=== PATIENT | female | born 1950 | race Caucasian/White ===

== ENCOUNTER → 2022-07-12 11:26 | Outpatient (CLI) | payer MEDICARE, OTHER, SELFPAY ==
--- NOTE | 2022-07-12 11:27 | DI.RAD.S_ITS ---
PROCEDURE: XR CHEST 2V INDICATIONS: Cough TECHNIQUE: 2 views of the chest were acquired. COMPARISON: None. FINDINGS: Surgical changes and devices: None. Lungs and pleura: Lungs are clear. No pleural effusions or pneumothorax. Mediastinum: Mediastinal contours are normal. Heart size is normal. Bones and chest wall: No suspicious bony abnormalities. Soft tissues appear unremarkable. IMPRESSION: Normal two view chest x-ray Approved by: Logan Sanders M.D. on 07/12/2022 at 11:41
== END ==
PROVIDERS: PCP Nurse Practitioner; Referring Provider Registered Nurse; Visit Provider Registered Nurse
DX: R05.9 Cough, unspecified (principal)
CPT/HCPCS: 71046

== ENCOUNTER 2023-06-09 10:35 | Emergency (ER) | payer MEDICARE, OTHER, SELFPAY ==
[2023-06-09 10:52] VITALS: BP 146/76; PULSE 71; RESP 16; TEMP 36.5; O2SAT 100; BMI 27.4
--- NOTE | 2023-06-09 13:19 | ED_ITS ---
HPI - Back Pain/Injury <Kimberly Daniels PA-C - Last Filed: 06/09/23 19:23> General Chief Complaint: Back Pain/Injury Stated Complaint: Middle back pain Time Seen by Provider: 06/09/23 12:10 Source: patient History of Present Illness HPI Narrative: This is a 73-year-old female with history of previous back pain low back problems, and left hip replacement who presents today with concern for right- sided low back pain that has been severe since last night. Patient states it has been 3 or 4 days she noticed a little bit of discomfort in her right back and initially thought nothing of it, she was standing at the kitchen doing some work preparing food yesterday evening and she realized her back pain was worsening and felt things tightening up and had to sit down. All night she has had pretty significant discomfort which she describes as a burning sensation to the right of her spine in her low back and also radiating out to her ribs a little. She does state that sometimes when she moves in certain ways it causes a sharp feeling pain and she also has some pain above her right buttock and into her right buttock. She denies numbness or tingling of extremities or extremity weakness but does state that walking and putting weight on her right leg makes her back hurt more. She denies any fevers, chills, vomiting, diarrhea, abdominal pain chest pain or any other symptoms. She is a former smoker but has been quit for 24 years. Related Data Home Medications Medication Instructions Recorded Confirmed atorvastatin 20 mg tablet (Lipitor) 20 mg PO HS ##0 02/13/16 07/12/22 timolol maleate 0.5 % eye drops 1 drp OPHTH ##0 02/13/16 07/12/22 tamoxifen 10 mg tablet 5 mg PO DAILY 12/06/18 07/12/22 Previous Rx's Medication Instructions Recorded celecoxib 200 mg capsule (Celebrex) 200 mg PO DAILY axial neck pain 12/06/18 #30 caps diclofenac sodium 1 % topical gel 2 g topical QID arthritis pain 12/06/18 #100 grams lidocaine 5 % topical patch 1 patch topical DAILY low back 12/06/18 pain #30 ea albuterol sulfate 90 mcg/actuation 2 puff inhalation Q4-6H PRN 07/12/22 aerosol inhaler shortness of breath or wheezing #6.7 grams benzonatate 200 mg capsule 200 mg PO TID PRN cough #30 caps 07/12/22 baclofen 10 mg tablet 10 mg PO TID 10 days #30 tabs 06/09/23 prednisone 20 mg tablet 40 mg (2 x 20 mg) PO DAILY 5 days 06/09/23 #10 tabs Allergies Allergy/AdvReac Type Severity Reaction Status Date / Time No Known Drug Allergies Allergy Verified 06/09/23 10:52 Review of Systems <Kimberly Daniels PA-C - Last Filed: 06/09/23 19:23> Review of Systems Narrative: See HPI Patient History <Kimberly Daniels PA-C - Last Filed: 06/09/23 19:23> Social History Smoking Status: Unknown if ever smoked Smoking Status: Unknown if ever smoked alcohol intake frequency: holidays/special occasions only Substance Use Type: does not use Exam <Kimberly Daniels PA-C - Last Filed: 06/09/23 19:23> Narrative Exam Narrative: GENERAL: 73 year old patient appears stated age. Well-developed patient, in mild distress. HEAD: Atraumatic. Normocephalic. EYES: Pupils equal round and reactive. Extraocular motions intact. No scleral icterus. No injection or drainage. ENT: Nose without bleeding, purulent drainage. Airway patent. NECK: Trachea midline. Non tender CARDIOVASCULAR: Regular rate and rhythm without murmurs, gallops, or rubs. RESPIRATORY: Clear to auscultation. Breath sounds equal bilaterally. No wheezes, rales, or rhonchi. GASTROINTESTINAL: Abdomen soft, non-tender, nondistended. EXTREMITIES: No edema or joint tenderness. BACK: There is no midline spinous process tenderness, there is significant tenderness with palpation over the lumbar paraspinal muscles with exquisite pain induced with palpation with some muscle spasming present. There is also pain with palpation over the intercostal muscles of ribs 8 through 12 posteriorly. Patient also has tenderness at the SI joint on the right and the sciatic nerve exit in the buttock.. Otherwise Nontender without deformity or crepitance. There is increased back pain with flexion and extension at the hip active. No CVA tenderness. NEURO: AOx3. SKIN: No rash or erythema of visible areas Initial Vital Signs Initial Vital Signs: Vital Signs Temperature 97.7 F 06/09/23 10:52 Pulse Rate 71 06/09/23 10:52 Respiratory Rate 16 06/09/23 10:52 Blood Pressure 146/76 H 06/09/23 10:52 Pulse Oximetry 100 06/09/23 10:52 Oxygen Delivery Method Room Air 06/09/23 10:52 <Yousif Ko MD - Last Filed: 06/12/23 19:25> Initial Vital Signs Initial Vital Signs: Vital Signs Temperature 97.7 F 06/09/23 10:52 Pulse Rate 71 06/09/23 10:52 Respiratory Rate 16 06/09/23 10:52 Blood Pressure 146/76 H 06/09/23 10:52 Pulse Oximetry 100 06/09/23 10:52 Oxygen Delivery Method Room Air 06/09/23 10:52 Course <Kimberly Daniels PA-C - Last Filed: 06/09/23 19:23> Orders Ordered: Discontinued Medications Baclofen (Baclofen 10 Mg Tablet) 10 mg PO NOW ONE Stop: 06/09/23 13:52 Last Admin: 06/09/23 14:02 Dose: 10 mg Documented By: DOM Ketorolac Tromethamine (Ketorolac 30 Mg/Ml Vial) 15 mg IM NOW ONE Stop: 06/09/23 13:52 Last Admin: 06/09/23 14:00 Dose: 15 mg Documented By: DOM Reevaluation(s) Reevaluation #1: Re-evaluated the patient and she has had improvement in her pain she states she is now able to walk a few steps without it increasing her pain in her back. 1500 Vital Signs Vital signs: Vital Signs - 8 hr 06/09/23 13:42 06/09/23 15:35 Temperature 97.3 F L Pulse Rate 70 61 Respiratory Rate 18 18 Blood Pressure 145/72 H 130/66 Pulse Oximetry 99 98 Oxygen Delivery Method Room Air Room Air <Yousif Ko MD - Last Filed: 06/12/23 19:25> Orders Ordered: Discontinued Medications Baclofen (Baclofen 10 Mg Tablet) 10 mg PO NOW ONE Stop: 06/09/23 13:52 Last Admin: 06/09/23 14:02 Dose: 10 mg Documented By: DOM Ketorolac Tromethamine (Ketorolac 30 Mg/Ml Vial) 15 mg IM NOW ONE Stop: 06/09/23 13:52 Last Admin: 06/09/23 14:00 Dose: 15 mg Documented By: DOM Vital Signs Vital signs: Vital Signs - 8 hr 06/09/23 13:42 06/09/23 15:35 Temperature 97.3 F L Pulse Rate 70 61 Respiratory Rate 18 18 Blood Pressure 145/72 H 130/66 Pulse Oximetry 99 98 Oxygen Delivery Method Room Air Room Air MDM - Back Pain/Injury <Kimberly Daniels PA-C - Last Filed: 06/09/23 19:23> Differential Diagnosis Differential diagnosis: Likely lumbar radiculopathy, sciatica and strain of lumbar region Lab Data Attestation: I reviewed the patient's lab results. Labs: Urine Dip Bedside Urine Glucose Negative Bedside Urine Bilirubin - Negative Bedside Urine Ketone - Negative Urine Specific [place] 1.015 Bedside Urine Occult Blood - Negative Bedside Urine pH 6.0 Bedside Urine Protein - Negative Bedside Urine Urobilinogen - Negative Bedside Urine Nitrite - Negative Bedside Urine Leukocytes - Negative Esterase Imaging Data lumbar spine xr: My Impression: Agree with Radiology interpretation Radiologist's Impression: [address] [address] XRay Report Signed Patient: Mary Beth Kirby MR#: [id number] : 1950 Acct:[id number] Age/Sex: 73 / F Date of Service: 06/09/23 Loc: ED Accession Number: [id number] Procedure: XR lumbar spine 2-3V Ordering Provider: Kimberly Daniels P.A-C PROCEDURE: XR LUMBAR SPINE 2-3V INDICATIONS: Right back pain no injury w/muscle spasms hx sciatica TECHNIQUE: 3 views of the lumbar spine were acquired. COMPARISON: None. FINDINGS: Bones: 5 [id number] vertebrae are present. There is normal bony alignment. No vertebral body compression fractures. No suspicious bony lesions. Spine degenerative disc disease and facet arthropathy. Partially visualized left hip arthroplasty. Soft tissues: Overlying bowel gas pattern is normal. No suspicious soft tissue calcifications. IMPRESSION: Multilevel degenerative disc disease. Multilevel facet arthropathy. No acute osseous lesion. If symptoms and/or clinical suspicion for pathology persists, evaluation with MRI should be considered for further assessment. Dictated by: Shiloh Leahy MD, PhD on 06/09/2023 at 15:10 Approved by: Shiloh Leahy MD, PhD on 06/09/2023 at 15:10 Treatment and disposition Shared decision making:: Shared decision-making was used to determine the patient's plan for evaluation today and plan for outpatient follow-up MDM Narrative Medical decision making narrative: This is a 73-year-old woman with history of previous low back problems who pr esents today with concern for right-sided low back pain present for 4 days and worsening as of last night. No specific known injury. Exam findings are very consistent with musculoskeletal injury, lumbar x-ray is obtained which does show moderate/mild disc degeneration. Patient is given Toradol and baclofen today in the ER and does have moderate improvement of symptoms. Urine is unremarkable, a dditional labs were not obtained as exam is very consistent with musculoskeletal injury. Prescription today for baclofen and prednisone, patient is advised to follow up closely with her PCP, return if new or worsening symptoms and consider seeing ortho spine for further evaluation ongoing care if needed if her symptoms are not improving soon. Return precautions provided, all questions answered. <Yousif Ko MD - Last Filed: 06/12/23 19:25> Lab Data Labs: Urine Dip Bedside Urine Glucose Negative Bedside Urine Bilirubin - Negative Bedside Urine Ketone - Negative Urine Specific [place] 1.015 Bedside Urine Occult Blood - Negative Bedside Urine pH 6.0 Bedside Urine Protein - Negative Bedside Urine Urobilinogen - Negative Bedside Urine Nitrite - Negative Bedside Urine Leukocytes - Negative Esterase Discharge Plan Departure Patient Disposition: Home Clinical Impression: Degenerative disc disease Qualifiers: Spinal region: lumbar Qualified Code(s): M51.36 - Other intervertebral disc degeneration, lumbar region Acute right-sided back pain Qualifiers: Back pain location: low back pain Sciatica presence: with sciatica Sciatica laterality: sciatica of right side Qualified Code(s): M54.41 - Lumbago with sciatica, right side Instructions: DI for Low Back Pain Activity Restrictions/Additional Instructions: *You have been diagnosed with degenerative disc disease in her lumbar spine, low back pain possibly right-sided sciatica *What to do: *Please continue to take your regular medications as directed. [2 ] New medication prescriptions sent to your pharmacy: [Baclofen, prednisone] [ ] New medication written as a paper prescription [ ] No new medications given *Please follow up with your primary care provider in 2-3 days, call for an appointment. Let them know you were seen in the Emergency Department and that we ask that you be seen in follow up. We will electronically transmit a record of today's note if your PCP is in our system. You came in today with pretty significant right-sided back pain in your low back. We did do x-rays today to further evaluate you did not have any recent injuries however x-rays did show that you have degenerative disc disease in her lumbar spine. I suspect that this may explain some of your symptoms you probably have inflammation to your nerves running out to your ribs and UR also having some muscle spasming on exam today. We gave you a shot of medication to help with pain called Toradol and we also gave you a muscle relaxer called baclofen. I have prescribed baclofen for you and also a course of steroid medications called prednisone. We did check her urine today which looked fine, we did not do other labs are more advanced imaging as based on exam and history this does seem like a musculoskeletal problem. If you develop any new or worsening symptoms please make sure you get re-evaluated. As we discussed today you may want to talk to your primary care provider about seeing a retail operations specialist for further evaluation or possibly having more advanced imaging done, particularly if your symptoms are not improving or staying improved within 3 weeks' time. *If you do not have a primary care provider please contact the [facility] Resource line at [phone]. They will ask some questions about your medical history and help get you set up with a doctor in the community. *Return to Emergency Department if you should have any new, worsening or concerning symptoms, such as [fever greater than 101 F, shaking chills, worsening pain, persistent vomiting or other bothersome symptoms] Prescriptions: New prednisone 20 mg tablet 40 mg PO DAILY 5 Days Qty: 10 0RF baclofen 10 mg tablet 10 mg PO TID 10 Days Qty: 30 0RF No Action timolol maleate 0.5 % drops 1 drp OPHTH Qty: 0 atorvastatin [Lipitor] 20 MG tablet 20 mg PO HS Qty: 0 benzonatate 200 mg capsule 200 mg PO TID PRN (Reason: cough) Qty: 30 0RF albuterol sulfate 90 mcg/actuation HFA aerosol inhaler 2 puff inhalation Q4-6H PRN (Reason: shortness of breath or wheezing) Qty: 6.7 0RF tamoxifen 10 mg tablet 5 mg PO DAILY celecoxib [Celebrex] 200 mg capsule 200 mg PO DAILY MDD 200 mg Qty: 30 5RF diclofenac sodium 1 % gel 2 g TOP QID MDD 8 gm Qty: 100 5RF Rx Instructions: apply to low back lidocaine 5 % adhesive patch,medicated 1 patch TOP DAILY MDD 12 hours in a 24 hour period Qty: 30 5RF Rx Instructions: leave on most painful area for 12 hrs Referrals: Altagracia Bocanegra ARNP [Primary Care Provider] - Stand Alone Forms: Patient Portal/API ED Sign-out <Yousif Ko MD - Last Filed: 06/12/23 19:25> Cosign ED Attending Cosignature Attestation: I was immediately available in the department for consultation. ?This docume ntation has been reviewed and I agree with assessment and plan. Supervised by Yousif Ko MD
[2023-06-09 13:42] VITALS: BP 145/72; PULSE 70; RESP 18; TEMP 36.3; O2SAT 99
--- NOTE | 2023-06-09 13:58 | DI.RAD.S_ITS ---
PROCEDURE: XR LUMBAR SPINE 2-3V INDICATIONS: Right back pain no injury w/muscle spasms hx sciatica TECHNIQUE: 3 views of the lumbar spine were acquired. COMPARISON: None. FINDINGS: Bones: 5 [id number] vertebrae are present. There is normal bony alignment. No vertebral body compression fractures. No suspicious bony lesions. Spine degenerative disc disease and facet arthropathy. Partially visualized left hip arthroplasty. Soft tissues: Overlying bowel gas pattern is normal. No suspicious soft tissue calcifications. IMPRESSION: Multilevel degenerative disc disease. Multilevel facet arthropathy. No acute osseous lesion. If symptoms and/or clinical suspicion for pathology persists, evaluation with MRI should be considered for further assessment. Dictated by: Shiloh Leahy MD, PhD on 06/09/2023 at 15:10 Approved by: Shiloh Leahy MD, PhD on 06/09/2023 at 15:10
[2023-06-09] MEDS: KETOROLAC 30 MG/ML VIAL 15 MG IM (14:00)
[2023-06-09] MEDS: BACLOFEN 10 MG TABLET PO (14:02)
[2023-06-09 15:35] VITALS: BP 130/66; PULSE 61; RESP 18; O2SAT 98
== END 2023-06-09 15:42 | disposition home or self-care (01) ==
PROVIDERS: Emergency Provider Student in an Organized Health Care Education/Training Program; PCP Nurse Practitioner
DX: M54.41 Lumbago with sciatica, right side (principal); M51.36 Other intervertebral disc degeneration, lumbar region; Z96.642 Presence of left artificial hip joint
CPT/HCPCS: 72100; 81003; 96372; 99283; J1885

== ENCOUNTER → 2023-10-25 14:49 | Outpatient (CLI) | payer MEDICARE, OTHER, SELFPAY ==
--- NOTE | 2023-10-25 14:57 | DI.RAD.S_ITS ---
PROCEDURE: XR ELBOW LT MIN 3V INDICATIONS: Left elbow pain, hot, tender, swollen TECHNIQUE: 3 views of the elbow were acquired. COMPARISON: None. FINDINGS: Bones: No fractures or dislocations. No suspicious bony lesions. Soft tissues: No elbow joint effusion. No suspicious soft tissue calcifications. Soft tissue swelling over the olecranon process IMPRESSION: Olecranon bursitis. No osteolytic lesion Approved by: Logan Sanders M.D. on 10/25/2023 at 18:56
== END ==
PROVIDERS: PCP Nurse Practitioner Family; Referring Provider Physician Assistant Surgical; Visit Provider Physician Assistant Surgical
DX: M79.602 Pain in left arm (principal); M70.22 Olecranon bursitis, left elbow
CPT/HCPCS: 73080

== ENCOUNTER → 2023-10-25 15:12 | Outpatient (CLI) | payer MEDICARE, OTHER, SELFPAY ==
--- NOTE | 2023-10-25 | DI.US.S_ITS ---
PROCEDURE: US EXTREMITY NONVASC UPPER LT INDICATIONS: LEFT ELBOW SWELLING/PAIN/ERYTHEMA TECHNIQUE: Real-time scanning was performed of the posterior elbow, with image documentation. COMPARISON: None. FINDINGS: Complex fluid collection within posterior left elbow soft tissue measures up to 2.3 x 1.6 x 2.1 cm in size with peripheral vascularity. IMPRESSION: Finding is concerning for dorsal elbow soft tissue abscess collection versus bursitis and olecranon bursal fluid in posterior left elbow, suggest clinical correlation. Dictated by: Young Navarrete M.D. on 10/25/2023 at 16:48 Approved by: Young Navarrete M.D. on 10/25/2023 at 16:50
== END ==
PROVIDERS: PCP Nurse Practitioner Family; Referring Provider Physician Assistant Surgical; Visit Provider Physician Assistant Surgical
DX: M70.22 Olecranon bursitis, left elbow (principal); M19.022 Primary osteoarthritis, left elbow; M25.422 Effusion, left elbow; M25.522 Pain in left elbow; M79.602 Pain in left arm
CPT/HCPCS: 73080; 76882

== ENCOUNTER → 2024-12-07 11:01 | Outpatient (CLI) | payer MEDICARE, OTHER, SELFPAY ==
--- NOTE | 2024-12-07 11:04 | DI.RAD.S_ITS ---
PROCEDURE: XR ELBOW LT MIN 3V INDICATIONS: Left elbow pain after ground level fall 2 weeks ago TECHNIQUE: 4 views of the elbow were acquired. COMPARISON: [facility], [place], XR ELBOW LT MIN 3V, 10/25/2023, 14:57. FINDINGS: Bones: No fractures or dislocations. No suspicious bony lesions. Soft tissues: No elbow joint effusion. No suspicious soft tissue calcifications. IMPRESSION: No acute bony abnormality or significant joint effusion. Dictated by: Donnell Rueda M.D. on 12/10/2024 at 6:32 Approved by: Donnell Rueda M.D. on 12/10/2024 at 6:32
== END ==
PROVIDERS: PCP Nurse Practitioner Family; Referring Provider Nurse Practitioner Family; Visit Provider Nurse Practitioner Family
DX: M25.522 Pain in left elbow (principal)
CPT/HCPCS: 73080

== ENCOUNTER → 2024-12-11 15:10 | Outpatient (CLI) | payer MEDICARE, OTHER, SELFPAY ==
--- NOTE | 2024-12-11 15:14 | DI.US.S_ITS ---
PROCEDURE: US EXTREMITY NONVASC UPPER LT INDICATIONS: Fluid/mass left elbow after fall 2 weeks TECHNIQUE: Real-time scanning was performed of the left elbow , with image documentation. COMPARISON: [facility], [place], US EXTREMITY NONVASC UPPER LT, 10/25/2023, 15:22. FINDINGS: In the area of concern left medial elbow, there is anechoic fluid which measures approximately 1.8 x 0.8 x 1.8 cm at the superficial margin of the likely common flexor tendon origin and in the subcutaneous fat. There are low-level echoes within the collection without increased vascularity. IMPRESSION: Left medial elbow 1.8 cm hypoechoic collection may represent a small hematoma. Recommend close clinical follow-up to resolution. If the collection does not resolve in the near future, recommend follow-up elbow MRI with without contrast to exclude underlying lesion. Dictated by: Eitan Sharma M.D. on 12/12/2024 at 8:34 Approved by: Eitan Sharma M.D. on 12/12/2024 at 8:45
== END ==
LOC: US 15:14
PROVIDERS: PCP Nurse Practitioner Family; Referring Provider Nurse Practitioner Family; Visit Provider Nurse Practitioner Family
DX: M25.422 Effusion, left elbow (principal)
CPT/HCPCS: 76882